=== PATIENT | female | born 1965 | race Caucasian/White ===

== ENCOUNTER 2019-01-01 08:04 | Day surgery (SDC) | payer BC, OTHER ==
[2018-12-30 15:26] VITALS: BMI 28.3
[~2019-01-01 08:04] MED LIST: LACTATED RINGERS 1,000 ML IV SCH; LIDOCAINE 1% 20 ML VIAL (10MG/ML) FOR IV START INTRADERMA PRN
[2019-01-01 08:25] VITALS: TEMP 98.3
[2019-01-01 08:35] LABS: Glucose,Whole Blood 132 mg/dL (75-99)
[2019-01-01] MEDS ORDERED: PROPOFOL 10 MG/ML 20 ML VIAL IV ONE (09:10)
[2019-01-01] MEDS ORDERED: GLYCOPYRROLATE 0.2 MG/ML 2 ML VIAL ONE (09:10)
[2019-01-01] MEDS ORDERED: LIDOCAINE 1% INJ 10MG/ML (20 ML MDV) ONE (09:10)
--- NOTE | 2019-01-01 09:21 | P.PCN ---
Date of Procedure: 01/01/19 Procedure(s) Performed: BRIEF HISTORY: Patient is a 53-year-old, pleasant, white female, scheduled for an upper endoscopy as a part of evaluation of long-standing history of GERD and history of colon polyps. She had an upper endoscopy by Dr. Kumar in July of this year and was told has multiple gastric polyps. She was advised to stop the omeprazole since and Zantac for GERD symptoms. Since then she is been having heartburn almost daily basis despite taking Zantac 150 mg twice daily. She was advised to have a repeat surveillance upper endoscopy in 3 months as a part of follow-up of gastric polyps. PROCEDURE PERFORMED: Esophagogastroduodenoscopy with biopsy. PREOPERATIVE DIAGNOSIS: Long-standing history of GERD/follow-up gastric polyps. IV sedation per anesthesia. PROCEDURE: After informed consent was obtained, the patient was brought into the endoscopy unit. IV sedation was administered by Anesthesia under continuous monitoring. Initially the Olympus GIF-140 video endoscope was inserted into the mouth. Esophagus intubated without any difficulty. It was gradually advanced into the stomach and duodenum and carefully examined. The bulb and the second part of the duodenum appeared normal. The scope at this time was withdrawn to the stomach, adequately insufflated with air, and upon careful examination, mucosa of the antrum, body and multiple gastric polyps measuring between 5-6 mm in size some of which were biopsied. The, cardia and the fundus appeared normal. The scope was then withdrawn into the esophagus. The GE junction was located at 39 cm from the incisors. The esophagus appeared normal. There were no erosions or ulcerations seen and the patient tolerated the procedure well. IMPRESSION: 1. Multiple small gastric polyps involving the cardia and fundus and body the stomach status post biopsy. 2. No evidence of esophagitis or Dumont's esophagus. RECOMMENDATIONS: The findings of this examination were discussed with the patient as well as a family. She was advised to increase the Zantac to 300 mg twice daily and follow with the biopsy results. She was briefly educated about diet modification antireflux measures..
[2019-01-01 09:26] VITALS: PULSE 88
[2019-01-01 09:54] VITALS: BP 142/94; RESP 16
== END 2019-01-01 09:54 | disposition home or self-care (01) ==
LOC: ORWHC2ENDO 08:04
PROVIDERS: ATTEND Internal Medicine Gastroenterology
DX: K21.9 Gastro-esophageal reflux disease without esophagitis (principal); K31.7 Polyp of stomach and duodenum; K29.50 Unspecified chronic gastritis without bleeding; Z79.899 Other long term (current) drug therapy; Z88.5 Allergy status to narcotic agent; I10 Essential (primary) hypertension; E78.5 Hyperlipidemia, unspecified; J45.909 Unspecified asthma, uncomplicated; E11.9 Type 2 diabetes mellitus without complications; E07.9 Disorder of thyroid, unspecified; Z79.1 Long term (current) use of non-steroidal anti-inflammatories (NSAID); Z79.890 Hormone replacement therapy; Z79.84 Long term (current) use of oral hypoglycemic drugs
CPT/HCPCS: 81025; 88305; 88342; 43239; J2001; J2704

== ENCOUNTER → 2019-12-02 | Outpatient (CLI) | payer BC, OTHER ==
--- NOTE | 2019-12-02 08:38 | US ---
EXAMINATION TYPE: US abdomen complete DATE OF EXAM: 12/02/2019 COMPARISON: NONE CLINICAL HISTORY: N92.1 frequent menstruation with irregular cycle. Patient states no abdominal pain or other symptoms, history of cholelithiasis EXAM MEASUREMENTS: Liver Length: 16.1 cm Gallbladder Wall: 0.2 cm CBD: 0.4 cm Spleen: 10.8 cm Right Kidney: 12.0 x 5.0 x 5.2 cm Left Kidney: 11.2 x 6.2 x 5.1 cm Pancreas: visualized portions wnl, limited by overlying midline bowel gas Liver: mildly heterogeneous Gallbladder: 0.8cm echogenic focus, wall measures wnl Evidence for sonographic Berg's sign: no CBD: wnl Spleen: visualized portions wnl, limited by overlying bowel gas Right Kidney: wnl Left Kidney: wnl Upper IVC: wnl Abd Aorta: wnl IMPRESSION: 1. Liver is heterogeneous in appearance which could be associated with hepatic steatosis, diffuse hep atocellular disease, or hepatitis correlate clinically. 2. 8 mm gallstone. No gallbladder wall thickening or biliary obstruction.
--- NOTE | 2019-12-02 08:43 | US ---
EXAMINATION TYPE: US pelvic complete DATE OF EXAM: 12/02/2019 COMPARISON: NONE CLINICAL HISTORY: N92.1 frequent menstruation with irregular cycle. Heavy bleeding x couple weeks, gr avida 2, para 2, patient on control. TECHNIQUE: . Transabdominal sonographic images of the pelvis were acquired. Transvaginal sonographi c images were medically necessary to better assess the following anatomy: endometrium and ovaries Date of LMP: April 2019 EXAM MEASUREMENTS: Uterus: 11.1 x 5.7 x 6.4 cm Endometrial Stripe: 0.5 cm Right Ovary: 2.3 x 1.2 x 1.9 cm Left Ovary: 2.6 x 1.4 x 1.5 cm 1. Uterus: anteverted, enlarged, heterogeneous, 3.2 x 2.9 x 3.3cm hypoechoic area, multiple nonspeci fic echogenic foci with largest measuring 0.6cm 2. Endometrium: wnl 3. Right Ovary: wnl 4. Left Ovary: wnl 5. Bilateral Adnexa: wnl 6. Posterior cul-de-sac: wnl IMPRESSION: 1. Enlarged heterogeneous uterus with a 3.3 cm hypoechoic mass. Could represent a fibroid. Recommend MRI for further evaluation.
== END | disposition home or self-care (01) ==
LOC: RADUSWWP 07:12
PROVIDERS: ATTEND Internal Medicine
DX: K80.20 Calculus of gallbladder without cholecystitis without obstruction (principal); N92.1 Excessive and frequent menstruation with irregular cycle
CPT/HCPCS: 76700; 76830; 76856